=== PATIENT | female | born 1980 | race Caucasian/White ===

== ENCOUNTER 2017-07-15 17:34 | Emergency (ER) | payer OTHER, SELFPAY ==
[~2017-07-15] VITALS: Ht 162.6 cm; Wt 82.3 kg
[2017-07-15 17:39] VITALS: BP 125/84
[2017-07-15] MEDS ORDERED: DEXAMETHASONE 4 MG TABLET PO ONE (19:00)
[2017-07-15] MEDS ORDERED: DEXAMETHASONE 4 MG/ML, 5ML ONE (19:09)
== END 2017-07-15 19:33 | disposition home or self-care (01) ==
LOC: ED 19:25
DX: J04.0 Acute laryngitis (principal); J20.8 Acute bronchitis due to other specified organisms
CPT/HCPCS: 71046; 99284

== ENCOUNTER 2017-07-31 22:30 | Emergency (ER) | payer SELFPAY ==
[~2017-07-31] VITALS: Ht 165.1 cm; Wt 77.5 kg
[2017-07-31 22:36] VITALS: BP 139/98
[2017-07-31] MEDS ORDERED: OXYcodone/APAP 5/325MG TABLET ONE (23:16)
[2017-07-31] MEDS ORDERED: OXYcodone/APAP 5/325MG TABLET PO ONE (23:30)
== END 2017-08-01 00:41 | disposition home or self-care (01) ==
LOC: ED 23:20
DX: S69.82XA Other specified injuries of left wrist, hand and finger(s), initial encounter (principal); W86.0XXA Exposure to domestic wiring and appliances, initial encounter; Y93.89 Activity, other specified; Y92.090 Kitchen in other non-institutional residence as the place of occurrence of the external cause; Y99.8 Other external cause status
CPT/HCPCS: 93005; 99283

== ENCOUNTER 2017-09-22 10:01 | Emergency (ER) | payer MEDICAID, OTHER ==
[~2017-09-22] VITALS: Ht 165.1 cm; Wt 77.2 kg
[2017-09-22] MEDS ORDERED: KETOROLAC 30 MG/1 ML IM ONE (11:00)
[2017-09-22] MEDS ORDERED: KETOROLAC 30 MG/1 ML ONE (11:02)
[2017-09-22 11:16] LABS: RAPID INFLUENZA A Negative (Negative); RAPID INFLUENZA B Negative (Negative)
[2017-09-22 13:01] VITALS: BP 116/74
== END 2017-09-22 13:03 | disposition home or self-care (01) ==
LOC: ED 12:45
DX: J98.01 Acute bronchospasm (principal); F17.200 Nicotine dependence, unspecified, uncomplicated
CPT/HCPCS: 71046; 87400; 99285

== ENCOUNTER 2018-01-04 22:53 | Emergency (ER) | payer MEDICAID ==
[~2018-01-04] VITALS: Ht 165.1 cm; Wt 74.7 kg
[2018-01-04] MEDS ORDERED: SODIUM CHLORIDE FLUSH 10ML SYR IVF ONE (23:30)
[2018-01-04] MEDS ORDERED: DIPHENHYDRAMINE 50 MG/ML, 1ML IVPush ONE (23:30)
[2018-01-04] MEDS ORDERED: PROCHLORPERAZINE 5 MG/ML, 2ML IVPush ONE (23:30)
[2018-01-04] MEDS ORDERED: SODIUM CHLORIDE 0.9% 1,000ML IVBOLUS ONE (23:30)
[2018-01-04] MEDS ORDERED: DIPHENHYDRAMINE 50 MG/ML, 1ML ONE (23:37)
[2018-01-04] MEDS ORDERED: PROCHLORPERAZINE 5 MG/ML, 2ML ONE (23:37)
[2018-01-04 23:41] LABS: BASOPHILS # (AUTO) 0.11 x10^3/uL (0-0.1); BASOPHILS % (AUTO) 1 % (0-1); EOSINOPHILS # (AUTO) 0.21 x10^3/uL (0-0.4); EOSINOPHILS % (AUTO) 2 % (1-7); LYMPHOCYTES # (AUTO) 3.88 x10^3/uL (1-3.4); LYMPHOCYTES % (AUTO) 35 % (22-44); MD NO; MEAN CORPUSCULAR HEMOGLOBIN 28.9 pg (27.0-34.8); MEAN CORPUSCULAR HGB CONC 33.8 g/dL (32.4-35.8); MEAN CORPUSCULAR VOLUME 85.5 fL (80-100); MEAN PLATELET VOLUME 7.7 fL (7.4-10.4); MONOCYTES % (AUTO) 7 % (2-9); NEUTROPHILS # (AUTO) 5.97 x10^3/uL (1.8-6.8); NEUTROPHILS % (AUTO) 54 % (42-75); PLATELET COUNT 373 x10^3/uL (130-400); RED BLOOD COUNT 4.55 x10^6/uL (3.82-5.3)
[2018-01-04 23:51] LABS: ALANINE AMINOTRANSFERASE 34 U/L (12-78); ALBUMIN 3.2 g/dL (3.4-5.0); ANION GAP 5 mmol/L (5-15); CALCIUM 8.9 mg/dL (8.5-10.1); CHLORIDE 107 mmol/L (98-107)
[2018-01-04 23:53] LABS: ALKALINE PHOSPHATASE 95 U/L (45-117); BILIRUBIN,TOTAL 0.3 mg/dL (0.2-1.0); TOTAL PROTEIN 7.1 g/dL (6.4-8.2)
[2018-01-05 02:08] VITALS: BP 103/76
== END 2018-01-05 02:09 | disposition home or self-care (01) ==
LOC: ED 23:59
DX: R51 Headache (principal)
CPT/HCPCS: 36415; 70450; 80053; 85025; 96374; 96375; 99285; J0780; J1200; J7030

== ENCOUNTER 2018-03-27 21:57 | Emergency (ER) | payer SELFPAY ==
[~2018-03-27] VITALS: Ht 165.1 cm; Wt 74.8 kg
[2018-03-27 21:59] VITALS: BP 121/76
[2018-03-27] MEDS ORDERED: PROPARACAINE OPHTH 0.5%, 15ML ONE (22:09)
== END 2018-03-27 23:14 | disposition home or self-care (01) ==
LOC: ED 22:59
DX: B99.8 Other infectious disease (principal); H10.89 Other conjunctivitis
CPT/HCPCS: 99283

== ENCOUNTER 2018-06-04 22:25 | Emergency (ER) | payer MEDICAID ==
[~2018-06-04] VITALS: Ht 167.6 cm; Wt 74.3 kg
[2018-06-04 23:19] LABS: BASOPHILS # (AUTO) 0.07 x10^3/uL (0-0.1); BASOPHILS % (AUTO) 1 % (0-1); EOSINOPHILS # (AUTO) 0.11 x10^3/uL (0-0.4); EOSINOPHILS % (AUTO) 1 % (1-7); LYMPHOCYTES % (AUTO) 36 % (22-44); MD NO; MEAN CORPUSCULAR HEMOGLOBIN 30.2 pg (27.0-34.8); MEAN CORPUSCULAR HGB CONC 34.5 g/dL (32.4-35.8); MEAN CORPUSCULAR VOLUME 87.7 fL (80-100); MEAN PLATELET VOLUME 9.1 fL (7.4-10.4); MONOCYTES # (AUTO) 0.84 x10^3/uL (0.2-0.8); MONOCYTES % (AUTO) 7 % (2-9); NEUTROPHILS # (AUTO) 6.45 x10^3/uL (1.8-6.8); NEUTROPHILS % (AUTO) 55 % (42-75); PLATELET COUNT 287 x10^3/uL (130-400); RED BLOOD COUNT 4.86 x10^6/uL (3.82-5.3); RED CELL DISTRIBUTION WIDTH 14.4 % (9.6-15.2)
[2018-06-04 23:21] LABS: ALANINE AMINOTRANSFERASE 32 U/L (12-78); ALBUMIN 3.7 g/dL (3.4-5.0); ANION GAP 7 mmol/L (5-15); CALCIUM 8.8 mg/dL (8.5-10.1); CHLORIDE 111 mmol/L (98-107); CREATININE 1.28 mg/dL (0.55-1.02)
[2018-06-04 23:31] LABS: ALKALINE PHOSPHATASE 91 U/L (45-117); BILIRUBIN,TOTAL 0.5 mg/dL (0.2-1.0); FREE T4 (FREE THYROXINE) 1.11 ng/dL (0.76-1.46); TOTAL PROTEIN 7.2 g/dL (6.4-8.2)
[2018-06-04 23:33] VITALS: BP 113/67
[2018-06-05] MEDS ORDERED: IBUPROFEN 600 MG TABLET PO ONE (00:30)
[2018-06-05] MEDS ORDERED: IBUPROFEN 600 MG TABLET ONE (00:34)
== END 2018-06-05 00:57 | disposition home or self-care (01) ==
LOC: ED 23:58
DX: R55 Syncope and collapse (principal); R51 Headache
CPT/HCPCS: 36415; 70450; 71045; 80053; 84439; 84443; 85025; 93005; 99284

== ENCOUNTER 2018-06-12 16:14 | Emergency (ER) | payer MEDICAID | END 2018-06-12 16:41 | disposition left against medical advice (07) | LOC: ED 16:35 | DX: S61.411A Laceration without foreign body of right hand, initial encounter (principal); X58.XXXA Exposure to other specified factors, initial encounter; Y93.89 Activity, other specified; Y92.89 Other specified places as the place of occurrence of the external cause; Y99.8 Other external cause status; Z53.21 Procedure and treatment not carried out due to patient leaving prior to being seen by health care provider ==

== ENCOUNTER 2019-02-07 00:57 | Emergency (ER) | payer MEDICAID ==
[~2019-02-07] VITALS: Ht 167.6 cm; Wt 78.7 kg
[2019-02-07 00:58] VITALS: BP 122/72
--- NOTE | 2019-02-07 01:40 | NUR ---
NIL X 1 WHEN CALLED FOR ROOM
--- NOTE | 2019-02-07 01:59 | NUR ---
NIL X 2 WHEN CALLED FOR ROOM.
== END 2019-02-07 02:03 | disposition left against medical advice (07) ==
LOC: ED 01:50
DX: G43.909 Migraine, unspecified, not intractable, without status migrainosus (principal); Z53.21 Procedure and treatment not carried out due to patient leaving prior to being seen by health care provider

== ENCOUNTER 2020-11-11 17:54 | Emergency (ER) | payer MEDICAID ==
[~2020-11-11] VITALS: Ht 165.1 cm; Wt 75.0 kg
--- NOTE | 2020-11-11 18:25 | NUR ---
Report received from task RN and care assumed. Pt reported to have cellulitis on L hand.
[2020-11-11] MEDS ORDERED: SODIUM CHLORIDE 0.9% 1,000ML IVBOLUS ONE (18:30)
--- NOTE | 2020-11-11 18:44 | NUR ---
Lab draw completed and xray at bedside for testing as ordered.
[2020-11-11 18:51] LABS: BASOPHILS % (AUTO) 1 % (0-1); EOSINOPHILS % (AUTO) 0 % (1-7); LYMPHOCYTES % (AUTO) 9 % (22-44); MEAN CORPUSCULAR HEMOGLOBIN 28.1 pg (27.0-34.8); MEAN CORPUSCULAR HGB CONC 33.4 g/dL (32.4-35.8); MEAN PLATELET VOLUME 7.4 fL (7.4-10.4); MONOCYTES % (AUTO) 4 % (2-9); NEUTROPHILS % (AUTO) 86 % (42-75); PLATELET COUNT 311 x10^3/uL (130-400); RED CELL DISTRIBUTION WIDTH 14.8 % (9.6-15.2)
[2020-11-11 19:00] LABS: ALBUMIN 3.3 g/dL (3.4-5.0); ANION GAP 6 mmol/L (5-15); CALCIUM 8.5 mg/dL (8.5-10.1); CHLORIDE 105 mmol/L (98-107); CREATININE 0.92 mg/dL (0.55-1.02)
[2020-11-11] MEDS ORDERED: CEFTRIAXONE 1,000 MG in DEXTROSE 5% 50 ML IVPB ONE (19:00)
[2020-11-11 19:06] LABS: MD NO
--- NOTE | 2020-11-11 19:24 | NUR ---
IVPB of Rocephin started at this time. Pt aware of pending wound cleaning and need for splint placement by EMT prior to d/c to home. Pt states she will need to be knocked out for that and was informed that was not a likely order from the MD.
--- NOTE | 2020-11-11 20:00 | NUR ---
Pt with IV bolus still running at wide open by slowly due to size of IV cath. Rocephin gtt completed and removed and splint to L wrist present per radiologic technology teacher and good distal CMS present on reassessment at this time. Pt's significant other requesting bus passes to go home with as they cannot find anyone to given them a ride and have no money for a cab. He states they walked here but thinks pt is too ill-feeling to walk back. Notified that I will check with charge weigher, but do not that being an issue.
[2020-11-11 20:17] VITALS: BP 113/72
== END 2020-11-11 20:37 | disposition home or self-care (01) ==
LOC: ED 18:49
DX: L03.114 Cellulitis of left upper limb (principal); F17.210 Nicotine dependence, cigarettes, uncomplicated
CPT/HCPCS: 29515; 36415; 73130; 80048; 82040; 85025; 96365; 99284; J0696; J7030